=== PATIENT | male | born 1975 | race African-American/Black ===

== ENCOUNTER 2018-03-18 15:41 | Emergency (ER) | payer MEDICAID, OTHER ==
[~2018-03-18] VITALS: Ht 170.2 cm; Wt 79.4 kg
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
[2018-03-18 17:39] VITALS: BP 131/90
[2018-03-18 17:42] VITALS: BP 131/90
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
--- NOTE | 2018-03-19 12:17 | Diagnostic Imaging Report ---
Indication: Chest pain Technique: One view of the chest Comparison: none Findings: On the pleural spaces are clear. The heart size is normal. No pneumothorax. Old healed left sixth rib fracture noted. Impression: No acute process
== END 2018-03-18 17:43 | disposition left against medical advice (07) ==
LOC: EMR 16:39
DX: S20.212A Contusion of left front wall of thorax, initial encounter (principal); W19.XXXA Unspecified fall, initial encounter; S10.96XA Insect bite of unspecified part of neck, initial encounter; W57.XXXA Bitten or stung by nonvenomous insect and other nonvenomous arthropods, initial encounter; Y92.89 Other specified places as the place of occurrence of the external cause; M79.642 Pain in left hand; R07.9 Chest pain, unspecified; R68.84 Jaw pain; M79.5 Residual foreign body in soft tissue; F17.200 Nicotine dependence, unspecified, uncomplicated; Z53.21 Procedure and treatment not carried out due to patient leaving prior to being seen by health care provider; R20.0 Anesthesia of skin
CPT/HCPCS: 71045; 99284